=== PATIENT | male | born 2000 | race Caucasian/White ===

== ENCOUNTER 2019-06-08 14:16 | Inpatient (IN) | payer BC ==
[~2019-06-08] VITALS: Ht 185.4 cm; Wt 69.4 kg
[2019-06-08] MEDS ORDERED: HALOPERIDOL 5 MG TABLET PO PRN (16:45)
[2019-06-08] MEDS ORDERED: LORazepam 2 MG TABLET PO PRN (16:45)
[2019-06-08] MEDS ORDERED: ZOLPIDEM TARTRATE 10 MG TABLET PO PRN (16:45)
[2019-06-08] MEDS ORDERED: INFLUENZA VIRUS VACCINE QVS 2019-20 (3YR+)/PF 60 MCG/0.5 ML SYRINGE IM ONE (17:30)
[2019-06-08] MEDS ORDERED: ONDANSETRON HCL 4 MG TABLET PO PRN (21:15)
[2019-06-08] MEDS ORDERED: LOPERAMIDE HCL 2 MG CAPSULE PO PRN (21:15)
[2019-06-08] MEDS ORDERED: NICOTINE 14 MG/24 HOUR PATCH TD PRN (21:15)
[2019-06-08] MEDS ORDERED: PETROLATUM,WHITE 28 GM JELLY TP PRN (21:15)
[2019-06-08] MEDS ORDERED: DOCUSATE SODIUM 100 MG CAPSULE PO PRN (21:15)
[2019-06-08] MEDS ORDERED: ALBUTEROL SULFATE HFA 90 MCG/PUFF 8 GM INHALER IH PRN (21:15)
[2019-06-08] MEDS ORDERED: ACETAMINOPHEN 325 MG TABLET PO PRN (21:15)
[2019-06-08] MEDS ORDERED: CloNIDine HCL 0.1 MG TABLET PO PRN (21:15)
[2019-06-08] MEDS ORDERED: MAGNESIUM HYDROXIDE SUSPENSION 30 ML UDCUP PO PRN (21:15)
[2019-06-08] MEDS ORDERED: MAG HYDROX/AL HYDROX/SIMETH ES 30 ML SUSPENSION UDCUP PO PRN (21:15)
[2019-06-08] MEDS ORDERED: IBUPROFEN 400 MG TABLET PO PRN (21:15)
[2019-06-08] MEDS ORDERED: GuaiFENesin/D-METHORPHAN [SUGAR-FREE] 200-20MG/10 ML SYRUP UDCUP PO PRN (21:15)
[2019-06-08 22:03] VITALS: BP 129/76
[2019-06-09 06:25] VITALS: BP 121/68
[2019-06-09] MEDS: CEPHALEXIN MONOHYDRATE 500 MG CAPSULE PO SCH ×2 (08:00→16:28)
[2019-06-09 08:10] VITALS: BP 116/73
[2019-06-09] MEDS: BACITRACIN 28.4 GM OINTMENT TP SCH ×2 (09:00→18:13)
[2019-06-09 09:07] LABS: BASOPHILS % (AUTO) 0.4 % (0.0-2.0); EOSINOPHILS % (AUTO) 2.2 % (1.0-6.0); HEMATOCRIT 46.2 % (41-53); HEMOGLOBIN 15.5 g/dL (13.5-17.5); LYMPHOCYTES # (AUTO) 1.3 K/uL (1.0-4.8); LYMPHOCYTES % (AUTO) 12.3 % (22.0-44.0); MEAN CORPUSCULAR HGB CONC 33.5 G/dL (31.0-37.0); MEAN CORPUSCULAR VOLUME 87 fL (80-100); MONOCYTES # (AUTO) 0.7 K/uL (0.1-1.0); MONOCYTES % (AUTO) 6.5 % (2.0-9.0); NEUTROPHILS # (AUTO) 8.5 K/uL (1.8-7.7); NEUTROPHILS % (AUTO) 78.6 % (40.0-70.0); PLATELET COUNT (AUTO) 257 K/uL (150-450); RED BLOOD CELL COUNT(AUTO) 5.34 MIL/uL (4.50-5.90); RED CELL DISTRIBUTION WIDTH 13.6 % (11.5-14.5)
[2019-06-09 09:30] LABS: HEMOGLOBIN A1C 5.3 % (4.5-6.2)
[2019-06-09 10:01] LABS: ALANINE AMINOTRANSFERASE 60 U/L (12-78); ALBUMIN 3.8 g/dL (3.4-5.0); ALKALINE PHOSPHATASE 106 U/L (46-116); ANION GAP 9 mmol/L (8-16); ASPARTATE AMINOTRANSFERASE 55 U/L (15-37); BILIRUBIN,TOTAL 0.4 mg/dL (0.1-1.0); CARBON DIOXIDE 28 mmol/L (22-29); CHLORIDE 99 mmol/L (98-107); CHOL/HDL RATIO 3.2 (4.2-7.3); CHOLESTEROL 137 mg/dL (131-200); CREATININE 1.09 mg/dL (0.60-1.30); FREE T4 (FREE THYROXINE) 0.98 ng/dL (0.76-1.46); GLOMERULAR FILTR. RATE CALC > 60 mL/min (>60); GLUCOSE,RANDOM 152 mg/dL (70-110); HDL CHOLESTEROL 43 mg/dL (40-60); LDL CHOL (CALC.) 79 mg/dL (0-130); POTASSIUM 4.1 mmol/L (3.5-5.1); SODIUM SERUM 136 mmol/L (136-145); THYROID STIMULATING HORMONE 2.96 uIU/mL (0.36-3.74); TOTAL PROTEIN, SERUM 8.1 g/dL (6.4-8.2); TRIGLYCERIDES 75 mg/dL (15-150); UREA NITROGEN, BLOOD 13 mg/dL (7-18)
[2019-06-09 16:22] VITALS: BP 121/74
[2019-06-09] MEDS: RisperiDONE 1 MG TABLET PO SCH (16:28)
[2019-06-10] MEDS: CEPHALEXIN MONOHYDRATE 500 MG CAPSULE PO SCH ×3 (00:52→16:15)
[2019-06-10 06:01] VITALS: BP 118/74
[2019-06-10] MEDS: RisperiDONE 1 MG TABLET PO SCH (08:32)
[2019-06-10] MEDS: BACITRACIN 28.4 GM OINTMENT TP SCH ×2 (08:34→16:18)
[2019-06-10 08:44] VITALS: BP 121/63
[2019-06-10] MEDS: RisperiDONE 2 MG TABLET PO SCH (16:18)
[2019-06-10 16:33] VITALS: BP 118/70
[2019-06-11] MEDS: CEPHALEXIN MONOHYDRATE 500 MG CAPSULE PO SCH ×5 (00:07→16:27)
[2019-06-11 00:37] VITALS: BP 120/81
[2019-06-11 08:19] VITALS: BP 119/63
[2019-06-11] MEDS: RisperiDONE 2 MG TABLET PO SCH (09:47)
[2019-06-11] MEDS: BACITRACIN 28.4 GM OINTMENT TP SCH ×2 (09:47→16:27)
[2019-06-11] MEDS ORDERED: RisperiDONE 1 MG TABLET PO ONE (10:15)
[2019-06-11 16:05] VITALS: BP 121/72
[2019-06-11] MEDS: RisperiDONE 3 MG TABLET PO SCH (16:27)
[2019-06-12] MEDS: CEPHALEXIN MONOHYDRATE 500 MG CAPSULE PO SCH ×2 (00:04→08:44)
[2019-06-12 03:59] VITALS: BP 121/64
[2019-06-12 08:14] VITALS: BP 122/77
[2019-06-12] MEDS ORDERED: CEPH500 PO (08:36)
[2019-06-12] MEDS ORDERED: RISP3 PO (08:36)
[2019-06-12] MEDS: RisperiDONE 3 MG TABLET PO SCH (08:44)
[2019-06-12] MEDS: BACITRACIN 28.4 GM OINTMENT TP SCH (08:45)
== END 2019-06-12 10:05 | disposition home or self-care (01) | DRG 885 ==
LOC: B2X 16:46
PROVIDERS: ADMIT Psychiatry & Neurology Psychiatry; ATTEND Psychiatry & Neurology Psychiatry
DX: F20.0 Paranoid schizophrenia (principal); L03.032 Cellulitis of left toe; F19.10 Other psychoactive substance abuse, uncomplicated; Z28.21 Immunization not carried out because of patient refusal
CPT/HCPCS: 70450; 83036; 84439; 84443